=== PATIENT | female | born 1995 | race Caucasian/White ===

== ENCOUNTER 2022-08-25 17:19 | Emergency (ER) | payer OTHER, SELFPAY ==
--- NOTE | ~2022-08-25 | XR_ITS ---
EXAMINATION: XR ankle LT min 3V DATE: 08/25/2022 17:50 INDICATION: Lateral left ankle swelling post injury TECHNIQUE: Anteroposterior, oblique, mortise, and lateral views of the left ankle were obtained. COMPARISON: None. FINDINGS: Alignment is normal. No fracture. Joint spaces are well maintained. No ankle joint effusion. The so ft tissues are unremarkable. IMPRESSION: 1. Negative left ankle radiographs. Reviewed, dictated and finalized at location A.
[2022-08-25 17:31] VITALS: BP 106/56; PULSE 104; RESP 16; TEMP 37.4; O2SAT 100
--- NOTE | 2022-08-25 17:50 | ED.LOWEXIN ---
HPI - Extremity Injury (Lower) General Chief Complaint: Extremity Injury, Lower Stated Complaint: left ankle injury Source: patient and RN notes reviewed History of Present Illness HPI Narrative: A 26-year-old female presents to urgent care with complaints of left lateral ankle pain. Patient states earlier today she twisted her ankle after stepping in the gutter. Patient reports left lateral foot pain and swelling. Patient states the pain radiates up her leg when she applies pressure. Denies any other injury including head injury. Patient is 16 weeks . Patient states she called her OB prior to arrival and was told she is able to get an x-ray as long as she is ?shielded. Related Data Allergies Allergy/AdvReac Type Severity Reaction Status Date / Time Penicillins Allergy Mild VOMITING Verified 07/01/18 10:35 latex Allergy Unknown unknown Verified 07/01/18 10:35 amoxicillin [From Augmentin] Allergy Rash Verified 08/25/22 17:28 clavulanic acid Allergy Rash Verified 08/25/22 17:28 [From Augmentin] Review of Systems Review of Systems: CONSTITUTIONAL: Denies fever, chills, or sweats. EYES: Denies visual changes, redness, or discharge. ENT: Denies otalgia and sore throat CARDIOVASCULAR: Denies chest pain, palpitations, or edema. RESPIRATORY: Denies cough or dyspnea. GASTROINTESTINAL: Denies abdominal pain, nausea, vomiting, or diarrhea. GENITOURINARY: Denies dysuria or hematuria. SKIN: Denies rash or itching. MUSCULOSKELETAL: Left lateral ankle pain NEUROLOGIC: Denies headache, numbness, or weakness. Pertinent positives per HPI. PMFSH Comments At the time of my signature, I reviewed and agree with the nursing past medical, surgical, social, and family history. There is no relevant family history pertinent to the patient complaint. Exam Narrative: GENERAL: This is a well-nourished, well-developed patient, in no apparent distress. HEAD: normocephalic, atraumatic. EYES: Sclera clear/white. Vision is grossly intact. EARS: External ears normal, auditory canals clear and without drainage. Hearing grossly intact. NOSE: External nose normal with no obvious nasal discharge, nares without redness, no rhinorrhea. THROAT: Mucous membranes moist, posterior pharynx clear. NECK: Neck supple, non-tender without lymphadenopathy, masses or thyromegaly. CARDIOVASCULAR: Regular rate and rhythm without murmurs, gallops, or rubs. RESPIRATORY: Clear to auscultation. Breath sounds equal bilaterally. No wheezes, rales, or rhonchi. SKIN: warm, intact with no suspicious lesions or rash, good texture and turgor. NEURO: awake, alert, and oriented to person, place and time. There were no obvious focal neurologic abnormalities. EXTREMITIES: Left lateral foot swelling and tenderness, just inferior to lateral malleolus. BACK: Nontender without deformity or crepitance. No flank tenderness. Course Course Level of Care: Express Care Visit Vital Signs Vital signs: Vital Signs Temperature 99.3 F 08/25/22 17:31 Pulse Rate 104 H 08/25/22 17:31 Respiratory Rate 16 08/25/22 17:31 Blood Pressure 106/56 L 08/25/22 17:31 Pulse Oximetry 100 08/25/22 17:31 Oxygen Delivery Room Air 08/25/22 17:31 Temperature 99.3 F 08/25/22 17:31 Pulse Rate 104 H 08/25/22 17:31 Respiratory Rate 16 08/25/22 17:31 Blood Pressure 106/56 L 08/25/22 17:31 Pulse Oximetry 100 08/25/22 17:31 Oxygen Delivery Room Air 08/25/22 17:31 Reviewed MDM - Extremity Injury (Lower) MDM Narrative Medical decision making narrative: Use the RICE method at home. May take ibuprofen and/or Tylenol if needed. If symptoms persist in 1 week after conservative treatment, follow-up with specialist. Differential Diagnosis Differential diagnosis: Likely ankle sprain and strain, ankle fracture and other (Foot fracture) Critical Care Time Critical Care Time Critical Care Time: No Discharge Plan Discharge Clinical Impression: Foot sprain Q
== END 2022-08-25 18:39 | disposition home or self-care (01) ==
PROVIDERS: Emergency Provider Nurse Practitioner Family; PCP Family Medicine
DX: O9A.212 Injury, poisoning and certain other consequences of external causes complicating pregnancy, second trimester (principal); Z3A.16 16 weeks gestation of pregnancy; S93.602A Unspecified sprain of left foot, initial encounter; X50.9XXA Other and unspecified overexertion or strenuous movements or postures, initial encounter
CPT/HCPCS: 73610; 99213; G0463